=== PATIENT | female | born 1980 | race African-American/Black ===

== ENCOUNTER 2016-12-27 12:23 | Emergency (ER) | payer OTHER ==
[2016-12-27 12:33] VITALS: BP 130/94; TEMP 98; BMI 28.0
--- NOTE | 2016-12-27 12:39 | PDOC ---
History of Present Illness - General Chief Complaint: Pain, Acute Stated Complaint: NECK AND BACK STIFFNESS Time Seen by Provider: 12/27/16 12:39 History Source: Patient Exam Limitations: No Limitations - History of Present Illness Initial Comments: 12/27/16 12:51 pt presents to the ED complaining of a 5 day history of pain and stiffness to her neck and upper back. patient awoke with the symptoms 5 days ago, and they have persisted and became slightly worse. Denies fevers, nausea and vomiting. Does complain of mild, frontal, band like headache that is similar to her tension headaches that she has had in the past. She has not tried any medications at home for the pain. Pain is worse with twisting movements of the neck and movements of her arms. Past History - Past Medical History Allergies/Adverse Reactions: Allergies Allergy/AdvReac Type Severity Reaction Status Date / Time sulfamethoxazole Allergy Intermediate Hives Verified 12/27/16 12:25 [From Bactrim] trimethoprim [From Bactrim] Allergy Intermediate Hives Verified 12/27/16 12:25 Home Medications: Ambulatory Orders NK [No Known Home Medication] 12/27/16 Other medical history: DENIES - Psycho/Social/Smoking Cessation Hx Anxiety: No Suicidal Ideation: No Smoking History: Never smoked Information on smoking cessation initiated: No Hx Alcohol Use: Yes (SOCIAL) Drug/Substance Use Hx: No Substance Use Type: Alcohol Review of Systems - Review of Systems Constitutional: No: Symptoms Reported, See HPI, Chills, Diaphoresis, Fever, Loss of Appetite, Malaise, Night Sweats, Weakness, Weight Stable, Unintentional Wgt. Loss, Unexplained wgt Loss, Other HEENTM: No: Symptoms Reported, See HPI, Eye Pain, Blurred Vision, Tearing, Recent change in vision, Double Vision, Cataracts, Ear Pain, Ocular Prothesis, Ear Discharge, Nose Pain, Nose Congestion, Tinnitus, Nose Bleeding, Hearing Loss , Throat Pain, Throat Swelling, Mouth Pain, Dental Problems, Difficulty Swallowing, Mouth Swelling, Other Respiratory: No: Symptoms reported, See HPI, Cough, Orthopnea, Shortness of Breath, SOB with Exertion, SOB at Rest, Stridor, Wheezing, Productive cough, Hemoptysis, Other Cardiac (ROS): No: Symptoms Reported, See HPI, Chest Pain, Edema, Irregular Heart Rate, Lightheadedness, Palpitations, Syncope, Chest Tightness, Other ABD/GI: No: Symptoms Reported, See HPI, Abdominal Distended, Abd. Pain w/ defecation, Blood Streaked Bowels, Constipated, Diarrhea, Difficulty Swallowing , Nausea, Poor Appetite, Poor Fluid Intake, Rectal Bleeding, Vomiting, Indigestion, Abdominal cramping, Tarry Stools, Other Musculoskeletal: Yes: Muscle Pain, Neck Pain Neurological: Yes: Headache. No: Symptoms reported, See HPI, Numbness, Paresthesia, Pre-Existing Deficit, Seizure, Tingling, Tremors, Weakness, Unsteady Gait, Ataxia, Dizziness, Other All Other Systems: Reviewed and Negative *Physical Exam - Vital Signs Last Vital Signs Temp Pulse Resp BP Pulse Ox 98 F 112 H 18 130/94 97 12/27/16 12:24 12/27/16 12:24 12/27/16 12:24 12/27/16 12:24 12/27/16 12:24 - Physical Exam General Appearance: Yes: Nourished, Appropriately Dressed. No: Apparent Distress, Disheveled, Mild Distress, Moderate Distress, Severe Distress, Alcohol on Breath, Intoxicated, Cachetic, Obese, Thin, Other HEENT: positive: Normal ENT Inspection, Normal Voice Neck: positive: Tender (tednerness over trapezious muscle on the left), Supple ( patient complains of stiffness, but has almost full ROM) Respiratory/Chest: positive: Lungs Clear, Normal Breath Sounds Cardiovascular: positive: Regular Rhythm, Regular Rate, S1, S2 Gastrointestinal/Abdominal: positive: Normal Bowel Sounds, Flat, Soft. negative : Tender, Organomegaly, Pulsatile Mass, Increased Bowel Sounds, Decreased BS, Protuberent, Distended, Guarding, Rebound, Tenderness, Hernia, Mass, Hepatomegaly, Spleenomegaly, Other Musculoskeletal: positive: Normal Inspection, Muscle Spasm. negative: CVA Tenderness, CVA Tenderness (R), CVA Tenderness (L), Decreased Range of Motion, Vertebral Tenderness, Other Extremity: positive: Normal Inspection Integumentary: positive: Normal Color, Dry, Warm Neurologic: positive: Fully Oriented, Alert, Normal Mood/Affect Medical Decision Making - Medical Decision Making 12/27/16 13:11 Pt presents to the ED complaining of mild neck stiffness and pain. No symptoms that are concerning for subarachnoid or infection. Most likely torticolis, however, mild tachycardia noted on vital signs--may be pain related. Will give pain control and reassess. *DC/Admit/Observation/Transfer Diagnosis at time of Disposition: Torticollis - Discharge Dispostion Disposition: HOME Condition at time of disposition: Good Admit: No - Patient Instructions Printed Discharge Instructions: DI for Torticollis Additional Instructions: return to the ED for pain with fever, severe pain, severe headache, difficulty swallowing, new or worsening symptoms
[2016-12-27] MEDS ORDERED: IBUPROFEN 400 MG TABLET (FP) PO ONE ×2 (12:47→12:51)
[2016-12-27 13:22] VITALS: PULSE 96
== END 2016-12-27 13:33 | disposition home or self-care (01) ==
LOC: FER 12:23
DX: M43.6 Torticollis (principal)
CPT/HCPCS: 99282-25